=== PATIENT | female | born 1950 | race Caucasian/White ===

== ENCOUNTER → 2016-12-18 | Outpatient (CLI) | payer OTHER, BC ==
[~2016-12-18] MED LIST: ASPI81TA28 PO; ATOR-26 PO; FRS/40 PO; GABA-112 PO; GLIP10TA10 PO; LISI-725 PO; METF-383 PO; METO25TA3 PO; OXGN; POTA8CAP6 PO; RXC5 PO; SITA100T3 PO
[2016-12-18 14:30] LABS: BASO % 0.1 %; BASO ABS # 0.01 K/uL (0-0.2); COMPLETE YES; EOS % 1.4 %; HEMATOCRIT 44.2 % (37-47); IG% 0.3 %; LYMPH ABS # 1.35 K/uL (1.2-3.4); MEAN CELL VOLUME 93.8 fL (80-100); MEAN CORPUSCULAR HEMOGLOBIN 30.6 pg (25-34); MEAN CORPUSCULAR HGB CONC 32.6 g/dl (32-36); MEAN PLATELET VOLUME 10.6 fL (7.4-10.4); MONO % 6.9 %; NEUT % 74.3 %; PLATELET COUNT 255 K/uL (130-400); RED BLOOD COUNT 4.71 M/uL (4.2-5.4); WHITE BLOOD COUNT 7.92 K/uL (4.8-10.8)
[2016-12-18 14:33] LABS: ESTIMATED AVERAGE GLUCOSE 177 mg/dl; HA1C FLAG Normal (Normal)
[2016-12-18 14:36] LABS: ALT/SGPT 20 U/L (12-78); AST/SGOT 24 U/L (15-37); BLOOD UREA NITROGEN 15 mg/dl (7-18); BUN/CREATININE RATIO 17.6 (10-20); CALCIUM 9.5 mg/dl (8.5-10.1); CARBON DIOXIDE 39 mmol/L (21-32); CHLORIDE 95 mmol/L (98-107); CHOLESTEROL 143 mg/dl (0-200); CREATININE 0.83 mg/dl (0.60-1.20); GLUCOSE 142 mg/dl (70-99); POTASSIUM 4.5 mmol/L (3.5-5.1); SODIUM 138 mmol/L (136-145); TRIGLYCERIDES 189 mg/dl (0-150); VERY LOW DENSITY LIPOPROT CALC 38 mg/dl
[2016-12-18 14:38] LABS: ALB/GLOB RATIO 0.9 (0.9-2); ALKALINE PHOSPHATASE 120 U/L (45-117); HDL CHOLESTEROL 36 mg/dl; LDL CHOLESTEROL CALCULATED 69 mg/dl
== END | disposition home or self-care (01) ==
LOC: C.LABSPEC 14:16
PROVIDERS: ATTEND Family Medicine
DX: E11.9 Type 2 diabetes mellitus without complications (principal); I10 Essential (primary) hypertension; E78.2 Mixed hyperlipidemia

== ENCOUNTER → 2017-06-06 | Outpatient (CLI) | payer OTHER, BC ==
[2017-06-06 13:42] LABS: ESTIMATED AVERAGE GLUCOSE 177 mg/dl; HA1C FLAG Normal (Normal)
== END | disposition home or self-care (01) ==
LOC: C.LABSPEC 12:51
PROVIDERS: ATTEND Family Medicine
DX: E11.9 Type 2 diabetes mellitus without complications (principal)

== ENCOUNTER → 2017-07-10 | Outpatient (CLI) | payer OTHER, BC | END | disposition home or self-care (01) | LOC: C.LABSPEC 13:51 | PROVIDERS: ATTEND Family Medicine | DX: Z00.00 Encounter for general adult medical examination without abnormal findings (principal) ==

== ENCOUNTER 2017-07-20 07:24 | Inpatient (IN) | payer OTHER, BC ==
[2017-06-21 11:10] VITALS: BMI 38.0
--- NOTE | 2017-06-21 11:45 | PAT Medication Instructions ---
Service Date Jun 21, 2017. Current Home Medication List Aspirin (Aspirin Ec), 81 MG PO QAM Atorvastatin (Lipitor), 80 MG PO HS Furosemide (Lasix), 40 MG PO QAM Gabapentin (Neurontin), 100 MG PO TID Glipizide (Glipizide), 20 MG PO BID Home O2 Therapy (Oxygen), 2 LITERS NA PRN Lisinopril (Zestril), 20 MG PO BID Metformin Hcl (Glucophage), 1,700 MG PO BID Metoprolol Succ (Toprol Xl) (Toprol-Xl), 25 MG PO QAM Potassium Chloride (Klor-Con Ext Rel), 8 MEQ PO QAM Sitagliptin Phosphate (Januvia), 100 MG PO QAM Medication Instructions For Your Scheduled Surgery - Hold the following medications 24 hours prior to surgery: Lisinopril (Zestril), 20 MG PO BID - Hold the following medications 48 hours prior to surgery: Metformin Hcl (Glucophage), 1,700 MG PO BID - Hold the following medications the morning of surgery: Glipizide (Glipizide), 20 MG PO BID Furosemide (Lasix), 40 MG PO QAM Potassium Chloride (Klor-Con Ext Rel), 8 MEQ PO QAM Sitagliptin Phosphate (Januvia), 100 MG PO QAM - Take the following medications the morning of surgery with a sip of water: Metoprolol Succ (Toprol Xl) (Toprol-Xl), 25 MG PO QAM Home O2 Therapy (Oxygen), 2 LITERS NA PRN (if needed) Gabapentin (Neurontin), 100 MG PO TID Aspirin (Aspirin Ec), 81 MG PO QAM (okay to continue per surgeon) - Take the following medications as scheduled the night before surgery: Atorvastatin (Lipitor), 80 MG PO HS Glipizide (Glipizide), 20 MG PO BID Gabapentin (Neurontin), 100 MG PO TID Home O2 Therapy (Oxygen), 2 LITERS NA PRN If you have any questions please call us at [phone] or [phone] or [phone]
[2017-06-21 12:17] LABS: BASO % 0.2 %; BASO ABS # 0.02 K/uL (0-0.2); COMPLETE YES; EOS % 1.2 %; HEMATOCRIT 39.2 % (37-47); IG% 0.2 %; LYMPH % 15.9 %; LYMPH ABS # 1.32 K/uL (1.2-3.4); MEAN CELL VOLUME 92.9 fL (80-100); MEAN CORPUSCULAR HEMOGLOBIN 31.3 pg (25-34); MEAN CORPUSCULAR HGB CONC 33.7 g/dl (32-36); MONO % 8.2 %; NEUT % 74.3 %; PLATELET COUNT 215 K/uL (130-400); RED BLOOD COUNT 4.22 M/uL (4.2-5.4); WHITE BLOOD COUNT 8.28 K/uL (4.8-10.8)
--- NOTE | 2017-06-21 12:24 | DIAGNOSTIC IMAGING REPORT ---
CHEST PREADMISSION(PA/LAT) CLINICAL HISTORY: Preoperative chest COMPARISON STUDY: No previous studies for comparison. FINDINGS: The cardiac and mediastinal contours are normal. There is no evidence of focal pulmonary consolidation. There is no evidence of failure. No pleural effusions are visualized.[ IMPRESSION: No active disease in the chest. Electronically signed by: Vinod Ovalles M.D. 06/21/2017 12:22 PM Dictated Date/Time: 06/21/2017 12:19 PM
[2017-06-21 12:29] LABS: URINE APPEARANCE CLEAR (CLEAR); URINE BILIRUBIN NEG (NEG); URINE COLOR YELLOW; URINE EPITHELIAL CELL AUTO >30 /lpf (0-5); URINE NITRITE NEG (NEG); URINE SPECIFIC GRAVITY 1.023 (1.000-1.030); UROBILINOGEN NEG (NEG); ZZUR CULT IF INDIC CLEAN CATCH YES
[2017-06-21 12:33] LABS: MANUAL MICROSCOPIC REQUIRED? NO; REVIEW REQ? NO
[2017-06-21 12:54] LABS: BUN/CREATININE RATIO 23.3 (10-20); CALCIUM 9.4 mg/dl (8.5-10.1); CREATININE 0.83 mg/dl (0.60-1.20); POTASSIUM 5.5 mmol/L (3.5-5.1)
[~2017-07-20] VITALS: Ht 149.9 cm; Wt 90.8 kg
[~2017-07-20 07:24] MED LIST changes: +CEFAZOLIN 2000 MG/60 ML D5W IV SCH; +LACTATED RINGER'S 1000ML 1,000 ML IV SCH; -RXC5 PO
[2017-07-20 08:01] VITALS: BP 147/85; PULSE 88; TEMP 36.6; O2SAT 97; Ht 149.9 cm; Wt 90.8 kg
[2017-07-20] MEDS ORDERED: EpHEDrine SULFATE INJ 50 MG/ML AMP IV PRN (08:15)
[2017-07-20] MEDS ORDERED: PROMETHAZINE HCL INJ 12.5 MG in SODIUM CHLORIDE 0.9% 50ML 50 ML IV PRN ×2 (08:15→12:00)
[2017-07-20] MEDS ORDERED: HYDROmorphone INJ 1 MG/ML SYR IV PRN ×2 (08:15→16:17)
[2017-07-20] MEDS ORDERED: FENTANYL CITRATE INJ 50 MCG/1 ML 2 ML VIAL IV PRN (08:15)
[2017-07-20] MEDS ORDERED: ATROPINE SULFATE 0.1 MG/ML 5ML SYR IV PRN (08:15)
[2017-07-20] MEDS ORDERED: ONDANSETRON INJ 2 MG/ML 2 ML VIAL IV PRN ×2 (08:15→12:00)
--- NOTE | 2017-07-20 08:32 | History & Physical Bridge Note ---
H&P Re-Evaluation Bridge Note: I have examined the patient, reviewed the History & Physical and in the interval since the performance of the History & Physical I have noted the following changes of clinical significance: No changes noted
--- NOTE | 2017-07-20 08:33 | History and Physical ---
History & Physical Date Jul 20, 2017. Chief Complaint Back and leg pain History of Present Illness The patient is a 67 year old female with complaints of back and leg pain Additional History Hepatic Disease: No Endocrine Disorder: No Kidney Disease: No Hypertension: Yes Heart Disease: No Bleeding Tendencies: No Infectious Diseases: No Allergies Coded Allergies: Amlodipine (Verified Allergy, Unknown, LEG SWELLING, 07/20/17) Home Medications Scheduled Aspirin (Aspirin Ec), 81 MG PO QAM Atorvastatin (Lipitor), 80 MG PO HS Furosemide (Lasix), 40 MG PO QAM Gabapentin (Neurontin), 100 MG PO TID Glipizide (Glipizide), 20 MG PO BID Home O2 Therapy (Oxygen), 2 LITERS NA PRN Lisinopril (Zestril), 20 MG PO BID Metformin Hcl (Glucophage), 1,700 MG PO BID Metoprolol Succ (Toprol Xl) (Toprol-Xl), 25 MG PO QAM Potassium Chloride (Klor-Con Ext Rel), 8 MEQ PO QAM Sitagliptin Phosphate (Januvia), 100 MG PO QAM Physical Examination Skin: warm/dry, no rash Eyes: normal inspection, EOMI, sclerae normal ENT: normal ENT inspection, pharynx normal Head: normocephalic, atraumatic Neck: supple, no adenopathy, trachea midline Respiratory/Chest: lungs clear, normal breath sounds, no respiratory distress Cardiovascular: regular rate, rhythm, no edema, no murmur Abdomen / GI: normal bowel sounds, non tender Back: normal inspection Extremities: normal inspection, normal range of motion Neurologic/Psych: no motor/sensory deficits, alert, normal reflexes, oriented x 3 Diagnosis Lumbar spinal stenosis Plan of Treatment Lumbar decompression fusion L3 to S1
[2017-07-20] MEDS ORDERED: MIDAZOLAM HCL 1 MG/ML 2ML VIAL ONE (08:46)
[2017-07-20] MEDS ORDERED: FENTANYL CITRATE INJ 50 MCG/1 ML 2 ML VIAL ONE ×3 (08:46→10:35)
[2017-07-20] MEDS ORDERED: BACITRACIN 50000 UNIT VIAL ONE (09:15)
[2017-07-20] MEDS ORDERED: BUPIVACAINE/EPINEPHRINE 0.5% MPF 1:200,000 30 ML VIAL ONE (09:15)
[2017-07-20] MEDS ORDERED: HYDROmorphone INJ 2 MG/ML SYR/VIAL ONE ×3 (09:45→12:08)
[2017-07-20] MEDS ORDERED: ROCURONIUM BROMIDE 10 MG/ML 5 ML VIAL IV ONE ×2 (10:05→12:09)
[2017-07-20] MEDS ORDERED: EpHEDrine SULFATE 50MG/5ML SYR ONE ×2 (10:22→12:08)
[2017-07-20] MEDS ORDERED: PHENYLEPHRINE 100MCG/ML 5ML SYR ONE ×2 (10:22→12:08)
[2017-07-20] MEDS ORDERED: LIDOCAINE HCL 2% 2 ML VIAL (20MG/ML) ONE (10:28)
[2017-07-20] MEDS ORDERED: PROPOFOL IV EMULSION 10 MG/ML 20 ML VIAL IV ONE (10:28)
[2017-07-20] MEDS ORDERED: DEXAMETHASONE SOD INJ 4 MG/ML VIAL ONE (10:28)
[2017-07-20] MEDS ORDERED: ALBUT/IPRATROP 3MG/0.5MG NEB 3 ML VIAL ONE ×2 (11:38→13:04)
[2017-07-20] MEDS ORDERED: FLOSEAL HEMOSTATIC MATRIX 10ML TOP ONE (11:48)
[2017-07-20] MEDS ORDERED: SODIUM CHLORIDE 0.9% 1000ML 1,000 ML IV SCH ×2 (11:55)
[2017-07-20] MEDS ORDERED: BISACODYL 10 MG SUPP PR PRN (12:00)
[2017-07-20] MEDS ORDERED: LORAZEPAM INJ 0.5 MG in SYRINGE 0 ML IV PRN (12:00)
[2017-07-20] MEDS ORDERED: ACETAMINOPHEN 500 MG TAB PO PRN (12:00)
[2017-07-20] MEDS ORDERED: ALUMINUM/MAGNESIUM SUSP 30 ML UDC PO PRN (12:00)
[2017-07-20] MEDS ORDERED: SOD PHOSPHATE/SOD BIPHOSPHATE ENEMA 132 ML BTL PR PRN (12:00)
[2017-07-20] MEDS ORDERED: HYDROmorphone HCL 0.5MG/ML 50 ML CASSETTE IV PRN (12:00)
[2017-07-20] MEDS ORDERED: METOCLOPRAMIDE HCL INJ 5 MG/ML 2 ML VIAL IV PRN (12:00)
[2017-07-20] MEDS ORDERED: ACETAMINOPHEN IV 100 ML IV PRN (12:00)
[2017-07-20] MEDS ORDERED: NALOXONE HCL 0.4 MG/1 ML VIAL/CARP IV PRN ×2 (12:00)
[2017-07-20] MEDS ORDERED: DO NOT ADMINISTER FLU VACCINE PRN ×3 (12:00)
[2017-07-20] MEDS ORDERED: hydrOXYzine HCL 25 MG TAB PO PRN (12:00)
[2017-07-20] MEDS ORDERED: FAMOTIDINE 20 MG TAB PO PRN (12:00)
[2017-07-20] MEDS ORDERED: DO NOT ADMINISTER PNEUMOCOCCAL VACCINE PRN ×2 (12:00)
[2017-07-20] MEDS ORDERED: MAGNESIUM HYDROXIDE SUSP 30 ML UDC PO PRN (12:00)
[2017-07-20] MEDS ORDERED: LORAZEPAM 0.5 MG TAB PO PRN (12:00)
--- NOTE | 2017-07-20 12:02 | [facility] Operative Report ---
Operative Report Operative Date Jul 20, 2017. Pre-Operative Diagnosis Lumbar Spinal Stenosis. Post-Operative Diagnosis Lumbar Spinal Stenosis. Procedure(s) Performed #1 lumbar decompression medial facetectomies foraminotomies L2 3 L3 4 L4 5 L5-S1. #2 posterior spinal fusion L3 4 L4 5 L5-S1. #3 placement posterior spinal segmental instrumentation L3 4 L4 5 L5-S1. #4 interbody fusion L5-S1. #5 placement peek cage 12 x 22 mm L5-S1. #6 placement of locally harvested morcellized autograft in the posterior lateral gutters. #7 placement infuse collagen sponge commode Master graft in the posterior lateral gutters and ostial amp in the interbody space. Surgeon Diet Technician Registered Surgeon(s) Jacek Barroso PA-C Estimated Blood Loss 400ML Findings Severe spinal stenosis Specimens None per surgeon. Description of Procedure Patient was met with preoperatively case discussed all questions are dressed. After informed consent she was taken to the operative suite and underwent intubation placed in the prone position the Doug table top Quinton frame. All bony prominences were well-padded eyes inspected to ensure no external pressure. Lumbar spine prepped and draped nostril fashion. Sharp dissection with the assistance of Bovie cautery was performed onto an exposing the lamina and transverse processes of L3 L4-L5 and sacral alar bilaterally. From a caudal to cephalad fashion complete laminectomy of L5 L4 and L3 as well as partial laminectomy of L2 was performed addressing severe lateral recess and foraminal stenosis. After this complete pedicle screws are placed in L3 L4-L5 and the S1 levels bilaterally. Purposes farhana was placed. Through a transforaminal approach on the left complete discectomy of L5-S1 was performed and plate created to subcortical bleeding bone and a 12 x 22 mm peek cage filled with ostial amp tapped in position. The rods were then compressed locked and final position bilaterally. A cross-link locked in position. The transverse processes of L3 L4-L5 and sacral alar burred to subcortical bleeding bone. Infuse calm sponge mask graft locally harvested morcellized autograft was placed and posterior gutters. 15 round ELLIOTT drain inserted. Incision was then closed with 1 Vicryl fascia 2-0 Vicryl subcutaneous cutaneously 4 Monocryl for final skin closure Steri-Strip sterile dressing placed. Patient we can take PACU stable condition. Please note Nelson neal was present at the entire procedure involved in patient positioning complex portions of the surgery and final skin closure. I attest to the content of the Intraoperative Record and any orders documented therein. Any exceptions are noted below.
[2017-07-20] MEDS ORDERED: NEOSTIGMINE METHYLSULFATE 1 MG/ML 10ML VIAL ONE (12:08)
[2017-07-20] MEDS ORDERED: ONDANSETRON INJ 2 MG/ML 2 ML VIAL ONE (12:08)
[2017-07-20] MEDS ORDERED: KETOROLAC TROMETHAMINE 30 MG/ML VIAL ONE (12:08)
[2017-07-20] MEDS ORDERED: GLYCOPYRROLATE INJ 0.2 MG/ML VIAL ONE (12:08)
[2017-07-20] MEDS ORDERED: PHARMACY GLYCEMIC MGMT CONSULT PRN (12:09)
--- NOTE | 2017-07-20 12:26 | DIAGNOSTIC IMAGING REPORT ---
LUMBAR SPINE, INTRAOPERATIVE FLUOROSCOPY HISTORY: L3-S1 posterior decompression and fusion. FLUOROSCOPY TIME: 24 seconds. FINDINGS: Intraoperative fluoroscopy was provided for the lumbar spine. 2 fluoroscopic spot images were obtained. Posterior decompression and fusion from L3 through S1 with pedicle screws and rods. The hardware appears intact. IMPRESSION: Fluoroscopy provided for a L3-S1 posterior decompression and fusion.. Electronically signed by: Tae Augustine M.D. 07/20/2017 12:25 PM Dictated Date/Time: 07/20/2017 12:24 PM
[2017-07-20 13:00] VITALS: PULSE 96; O2SAT 93; O2SAT 95
[2017-07-20] MEDS ORDERED: ALBUT/IPRATROP 3MG/0.5MG NEB 3 ML VIAL INH STA (13:04)
[2017-07-20] MEDS ORDERED: ESMOLOL HCL 10 MG/ML 10 ML VIAL ONE (13:42)
[2017-07-20] MEDS ORDERED: METOPROLOL TARTRATE 1 MG/ML VIAL ONE (13:42)
[2017-07-20] MEDS ORDERED: NURSING VERBAL MED ORDER ONE (14:00)
--- NOTE | 2017-07-20 14:53 | DIAGNOSTIC IMAGING REPORT ---
CHEST ONE VIEW PORTABLE CLINICAL HISTORY: 67 years-old Female presenting with Post-op. TECHNIQUE: Portable upright AP view of the chest was obtained. COMPARISON: 06/21/2017. FINDINGS: Atherosclerosis of the aortic arch. Cardiac silhouette enlarged as on prior exam. Interval development of hazy bibasilar opacities. No large effusion or pneumothorax. Degenerative changes of the thoracic spine. Upper abdomen normal. IMPRESSION: 1. Cardiomegaly with hazy bibasilar opacities most consistent with pulmonary edema. Electronically signed by: Costa Angela M.D. 07/20/2017 2:52 PM Dictated Date/Time: 07/20/2017 2:51 PM
[2017-07-20] MEDS ORDERED: GLUCAGON FOR INJ 1 MG VIAL SQ PRN (15:00)
[2017-07-20] MEDS ORDERED: INSULIN HUMAN REGULAR IV BOLUS 2 UNIT in SYRINGE 0 ML IV SCH (15:00)
[2017-07-20] MEDS ORDERED: GLUCOSE 40% GEL 15 GM TUBE PO PRN (15:00)
[2017-07-20] MEDS ORDERED: GLUCOSE 10 TABS/TUBE PO PRN (15:00)
[2017-07-20] MEDS ORDERED: DEXTROSE 50% 50 ML SYR IV PRN (15:00)
--- NOTE | 2017-07-20 15:05 | Pharmacy Progress Note ---
Glycemic Control Intl Consult Date of Service Jul 20, 2017. Scope Glycemic Pharmacist consulted by Dr Gutierres on 07/20/17 for glycemic control and to write orders per [facility] inpatient glycemic control protocol Objective Weight (Kilograms): 87.5 Accuchecks BSG (last 24hrs): Test 07/20/17 07:54 07/20/17 14:45 Bedside Glucose 225 mg/dl (70-90) 298 mg/dl (70-90) Recent Pertinent Medications Outpatient Anti-diabetic Regimen: * glipizide 20 mg PO BID + metformin 1000 mg PO BID + Januvia 100 mg PO daily * A1c = 7.8 % 07/20/17 Risk Factors for Insulin Resistance: * Steroids: dexamethasone 12 mg IV intraoperatively then 6 mg IV q8 hours * Recent Surgery: POD 0 for lumbar surgery * Diet: type 2 diabetic diet Assessment & Plan ASSESSMENT: * ADA & AACE recommend a goal blood sugar range 140-180 mg/dl for the majority of critically ill & non-critically ill patients. However, more stringent targets may be selected in individual cases. Will utilize more stringent goal of 100-150 mg/dl based on patient age & comorbidities. Additionally, tighter glycemic control is warranted to facilitate wound healing. * Ms Lucas is a type 2 diabetic with reasonable control on 3 oral medications. Her blood sugar prior to surgery is 224 mg/dL. The patient received steroids during surgery and after surgery. Unfortunately, her blood sugar in PACU was 298 mg/dL. Dr Nenita rdz'ed an insulin infusion and this was started in PACU. * In addition to the insulin infusion, weight based stress of 3 24 hour dose of Lantus was given then weight based stress of 2 started on POD 1. In previous patients this has proven effective. A fixed carbohydrate ratio was established based on weight based stress of 3 dosing. PLAN FOR INPATIENT GLYCEMIC CONTROL: * Starting IV insulin infusion per moderate (moderate/severe) stress protocol * Goal Range 100 - 150 mg/dl * In the critical care setting, continuous IV insulin infusion has been shown to be the best method for achieving glycemic targets. * Maintain fixed carbohydrate ratio of 1 unit per 6 grams of carbohydrates consumed. * Holding outpatient oral diabetes medications * Basal insulin with LANTUS 45 units SQ x 1 then 15 SQ BID * Please note that the plan above was derived based on current level of insulin resistance and hospital stress. These recommendations are appropriate for inpatient admission only. Plan of care upon discharge will need to be reassessed to avoid potential outpatient hypo/hyperglycemia. Thank you.
[2017-07-20] MEDS: INSULIN REGULAR 250 UNITS in SODIUM CHLORIDE 0.9% 250ML 250 ML IV SCH (15:06)
--- NOTE | 2017-07-20 15:13 | Anesthesiology Progress Note ---
Anesthesia Post Op Note Date & Time Jul 20, 2017 at 15:10 Vital Signs Pain Intensity: 0 Vital Signs Past 12 Hours Date Time Temp Pulse Resp B/P (MAP) Pulse Ox O2 Delivery O2 Flow Rate FiO2 07/20/17 14:50 82 16 131/80 90 BiPAP 70 07/20/17 14:40 77 14 114/90 88 BiPAP 60 07/20/17 14:30 85 15 122/71 90 BiPAP 60 07/20/17 14:20 76 13 129/77 89 BiPAP 60 07/20/17 14:10 77 16 155/77 90 BiPAP 60 07/20/17 14:00 87 12 125/66 88 BiPAP 50 07/20/17 13:50 89 14 137/69 92 BiPAP 50 07/20/17 13:40 92 15 116/89 91 BiPAP 50 07/20/17 13:30 90 15 139/78 95 BiPAP 50 07/20/17 13:20 92 14 140/77 91 BiPAP 50 07/20/17 13:10 94 18 151/79 96 BiPAP 50 07/20/17 13:01 36.0 95 16 166/84 92 BiPAP 50 07/20/17 13:00 96 24 95 BiPAP/CPAP 07/20/17 13:00 96 93 50 07/20/17 08:01 36.6 88 20 147/85 97 Room Air Notes Mental Status: alert / awake / arousable, participated in evaluation Pt Amnestic to Procedure: Yes Nausea / Vomiting: adequately controlled Pain: adequately controlled Airway Patency, RR, SpO2: stable & adequate BP & HR: stable & adequate Hydration State: stable & adequate Anesthetic Complications: no major complications apparent Pt requiring bipap in PACU for low O2 Sats. Pt with h/o COPD on 2L NC and current smoker. Duoneb also given in PACU with minimal improvement. Doing well with improved sats on bipap with O2 ranging from 90-93%. CXR ordered showing bibasilar opacities consistent with pulmonary edema. Discussed with Dr. Gutierres. Pt will be admitted to telemetry unit, on bipap overnight with medicine consult. Other VS stable.
[2017-07-20] MEDS ORDERED: FUROSEMIDE 40 MG/4 ML VIAL IV STA (16:15)
[2017-07-20 16:30] LABS: BASO % 0.1 %; BASO ABS # 0.01 K/uL (0-0.2); HEMATOCRIT 36.9 % (37-47); IG% 0.6 %; LYMPH % 2.9 %; LYMPH ABS # 0.42 K/uL (1.2-3.4); MEAN CELL VOLUME 94.4 fL (80-100); MEAN CORPUSCULAR HEMOGLOBIN 30.2 pg (25-34); MEAN PLATELET VOLUME 9.9 fL (7.4-10.4); MONO % 3.8 %; NEUT % 92.6 %; PLATELET COUNT 214 K/uL (130-400); RED BLOOD COUNT 3.91 M/uL (4.2-5.4)
[2017-07-20 16:38] LABS: COMPLETE YES
--- NOTE | 2017-07-20 16:39 | Medical Consult ---
Consultation Date of Consultation: Jul 20, 2017. Attending Physician: Yunior Gutierres D.O. Reason for Consultation: Medical management History of Present Illness The patient is a 67-year-old female who underwent orthopedic spine surgery by Dr. Gutierres earlier today, and was found in recovery to be hypoxic requiring BiPAP at settings of 14/7/70% to keep pulse ox in the mid 90s. Chest x-ray performed at that time showed bilateral lower lobe pulmonary edema, medical consult was called in, the patient was admitted under Dr. Gutierres service to the PCU. Family History Noncontributory Social History Smoking Status: Current Every Day Smoker Smokeless Tobacco Use: No Alcohol Use: none Drug Use: none Allergies Coded Allergies: Amlodipine (Verified Allergy, Unknown, LEG SWELLING, 07/20/17) Current Inpatient Medications Current Inpatient Medications Medications (Trade) Dose Ordered Sig/Mayelin Route Start Time Stop Time Status Last Admin Dose Admin Cefazolin Sodium 60 ml @ 100 mls/hr PREOP IV 07/20/17 06:00 07/20/17 18:00 07/20/17 09:26 100 MLS/HR Lactated Ringer's 1,000 ml @ 15 mls/hr Q24H IV 07/20/17 06:00 07/21/17 05:59 Dexamethasone Sodium Phosphate 6 mg/Syringe 1.5 ml @ 1 mls/min Q8H IV 07/20/17 18:00 07/21/17 10:02 Promethazine HCl 12.5 mg/Sodium Chloride 50.5 ml @ 202 mls/hr Q6H PRN IV 07/20/17 12:00 08/19/17 11:59 Ondansetron HCl (Zofran Inj) 4 mg Q6H PRN IV 07/20/17 12:00 08/19/17 11:59 Metoclopramide HCl (Reglan Inj) 10 mg Q6H PRN IV 07/20/17 12:00 08/19/17 11:59 Lorazepam (Ativan Tab) 0.5 mg Q8H PRN PO 07/20/17 12:00 08/19/17 11:59 Lorazepam 0.5 mg/ Syringe 0.25 ml @ 1 mls/min Q8H PRN IV 07/20/17 12:00 08/19/17 11:59 Pneumococcal Polysaccharide Vaccine 1 ea PRN PRN N/A 07/20/17 12:00 08/19/17 11:59 Influenza Virus Vacc Triv Types A&B 1 ea PRN PRN N/A 07/20/17 12:00 08/19/17 11:59 Polyethylene (Miralax Powder Packet) 17 gm Q6 PO 07/22/17 06:00 08/21/17 05:59 Bisacodyl (Dulcolax Supp) 10 mg DAILY PRN [place] 07/20/17 12:00 08/19/17 11:59 Magnesium Hydroxide (Milk Of Magnesia Susp) 30 ml DAILY PRN PO 07/20/17 12:00 08/19/17 11:59 Hydromorphone HCl (Dilaudid Inj) 0.5-1mg prn moder... Q3H PRN IV 07/20/17 16:17 08/03/17 16:16 Oxycodone HCl (Roxicodone Immediate Rel Tab) 5-10mg prn moderate to sev... Q4H PRN PO 07/21/17 06:00 08/04/17 05:59 Cefazolin Sodium 2000 mg/Dextrose 60 ml @ 100 mls/hr Q8H IV 07/20/17 18:00 07/21/17 02:35 Acetaminophen (Tylenol Tab) 1,000 mg Q8H PRN PO 07/20/17 12:00 08/19/17 11:59 Acetaminophen 100 ml @ 400 mls/hr Q8H PRN IV 07/20/17 12:00 08/19/17 11:59 Naloxone HCl (Narcan Inj) 0.1 mg Q5M PRN IV 07/20/17 12:00 08/19/17 11:59 Senna/Docusate Sodium (Senokot S Tab) 2 tab HS PO 07/20/17 21:00 08/19/17 20:59 Sodium Biphosphate/ Sodium Phosphate (Fleet Enema) 132 ml ONE PRN [place] 07/20/17 12:00 08/19/17 11:59 Hydroxyzine HCl (Vistaril Tab) 25 mg Q8H PRN PO 07/20/17 12:00 08/19/17 11:59 Al Hydroxide/Mg Hydroxide (Maalox Susp) 30 ml Q6H PRN PO 07/20/17 12:00 08/19/17 11:59 Famotidine (Pepcid Tab) 20 mg Q12 PRN PO 07/20/17 12:00 08/19/17 11:59 Diphenhydramine HCl (Benadryl Cap) 25 mg Q6H PRN PO 07/20/17 12:00 08/19/17 11:59 Aspirin (Ecotrin Tab) 81 mg QAM PO 07/21/17 09:00 08/20/17 08:59 Atorvastatin Calcium (Lipitor Tab) 80 mg HS PO 07/20/17 21:00 08/19/17 20:59 Gabapentin (Neurontin Cap) 100 mg TID PO 07/20/17 21:00 08/19/17 20:59 Lisinopril (Zestril Tab) 20 mg BID PO 07/20/17 21:00 08/19/17 20:59 Metoprolol Succinate (Toprol Xl Tab) 25 mg QAM PO 07/21/17 09:00 08/20/17 08:59 Miscellaneous Information (Consult Glycemic Management Pharmacy) 1 ea UD PRN N/A 07/20/17 12:09 08/19/17 12:08 Insulin Human Regular 250 units/ Sodium Chloride 252.5 ml @ 0 mls/hr DAILY@1130 IV 07/20/17 15:00 08/19/17 14:59 07/20/17 15:06 2.2 MLS/HR Insulin Aspart (novoLOG ASPART) SLIDING SCALE PCHS SC 07/20/17 17:30 08/19/17 18:59 Glucose (Glucose 40% Gel) UD PRN PO 07/20/17 15:00 08/19/17 14:59 Glucose (Glucose Chew Tab) 1 tabs UD PRN PO 07/20/17 15:00 08/19/17 14:59 Dextrose (Dextrose 50% 50ML Syringe) 50 ml UD PRN IV 07/20/17 15:00 08/19/17 14:59 Glucagon (Glucagon Inj) 1 mg UD PRN SQ 07/20/17 15:00 08/19/17 14:59 Insulin Glargine (Lantus Solostar Pen) 15 units BID SC 07/21/17 09:00 08/20/17 08:59 Furosemide 40 mg/ Syringe 4 ml @ 4 mls/min BID IV 07/20/17 23:00 08/19/17 22:59 Insulin Glargine (Lantus Solostar Pen) 45 units TODAY@1700 SC 07/20/17 17:00 07/20/17 17:01 Review of Systems The patient denies chest pain, palpitations, cough, lower extremity swelling, vision change, hearing change, sore throat, fevers, chills, sweats, nausea, vomiting, diarrhea or constipation , abdominal pain, pelvic pain, blood in urine or stool, dysuria, urinary frequency or urgency, lightheadedness , dizziness, headache, rash, abnormal bruising or bleeding. The review of systems is otherwise negative other than for that already noted above, and at least 10 systems have been reviewed. Physical Exam Date Time Temp Pulse Resp B/P (MAP) Pulse Ox O2 Delivery O2 Flow Rate FiO2 07/20/17 15:30 82 15 126/70 92 BiPAP 70 07/20/17 15:20 82 16 127/75 92 BiPAP 70 07/20/17 15:10 36.1 83 18 136/78 92 BiPAP 70 07/20/17 15:00 72 13 130/71 93 BiPAP 70 07/20/17 14:50 82 16 131/80 90 BiPAP 70 07/20/17 14:40 77 14 114/90 88 BiPAP 60 07/20/17 14:30 85 15 122/71 90 BiPAP 60 07/20/17 14:20 76 13 129/77 89 BiPAP 60 07/20/17 14:10 77 16 155/77 90 BiPAP 60 07/20/17 14:00 87 12 125/66 88 BiPAP 50 07/20/17 13:50 89 14 137/69 92 BiPAP 50 07/20/17 13:40 92 15 116/89 91 BiPAP 50 07/20/17 13:30 90 15 139/78 95 BiPAP 50 07/20/17 13:20 92 14 140/77 91 BiPAP 50 07/20/17 13:10 94 18 151/79 96 BiPAP 50 07/20/17 13:01 36.0 95 16 166/84 92 BiPAP 50 07/20/17 13:00 96 24 95 BiPAP/CPAP 07/20/17 13:00 96 93 50 07/20/17 08:01 36.6 88 20 147/85 97 Room Air The patient is awake, well-developed and adequately nourished, alert and oriented 3, normocephalic and atraumatic, BiPAP mask in place, lying in bed and in no acute distress. HEENT--PERRL, EOMI, mucous membranes and oropharynx normal. Neck--supple, no JVD or bruits, thyroid normal, trachea midline, no adenopathy. Heart--normal S1 and S2, no extra beats, no murmurs, rubs or gallops. Lungs--crackles at the bases bilaterally, mild respiratory distress, no accessory muscle use. Abdomen--normal bowel sounds and soft, nontender and nondistended, no hernias or masses, no organomegaly. Extremities--no cyanosis, clubbing or edema. There are good distal pulses b/l. Dermatologic--normal skin turgor, normal color, warm and dry, no abnormal lymph nodes, no rash. Neurologic--cranial nerves II through XII grossly intact. Rheumatologic--limited exam postoperatively Psychiatric--normal affect. Laboratory Results Last 24 Hours Test 07/20/17 07:54 07/20/17 14:45 07/20/17 16:02 07/20/17 16:16 Bedside Glucose 225 mg/dl 298 mg/dl Creatine Kinase MB Ratio Assessment & Plan Acute respiratory failure with hypoxia secondary to fluid overload-- The patient will be admitted to telemetry for serial cardiac enzymes, cardiac rhythm monitoring and a 2-D echocardiogram with Dopplers. Discontinue IV fluids and Hep-Lock IV. Lasix 40 mg IV now, then 40 mg IV twice a day. Stat CBC with differential, chemistry profile, magnesium level, and cardiac enzymes. 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 Keep Conway catheter in until discontinued by medicine service. Taper from BiPAP 14/7 with FiO2 70% to nasal cannula as symptoms improve. Serial laboratories and chest x-rays in a.m. Hypertension-- Continue metoprolol, aspirin and lisinopril. Hyperlipidemia -- Continue atorvastatin. COPD-- Continue usual regimen. Duonebs every 2 hours when necessary Status post orthopedic spine surgery-- Treatment per Dr. Gutierres. Diabetes mellitus-- Glycemic . Management has been consulted Thank you for this consult, [facility] Hospitalist Service will follow along during hospital stay.
[2017-07-20 16:56] LABS: ALKALINE PHOSPHATASE 109 U/L (45-117); ALT/SGPT 22 U/L (12-78); AST/SGOT 30 U/L (15-37); BLOOD UREA NITROGEN 18 mg/dl (7-18); BUN/CREATININE RATIO 17.8 (10-20); CALCIUM 8.3 mg/dl (8.5-10.1); CARBON DIOXIDE 30 mmol/L (21-32); CHLORIDE 102 mmol/L (98-107); CKMB/CK RATIO 3.5 (0-3.0); GLUCOSE 265 mg/dl (70-99); MAGNESIUM 1.8 mg/dl (1.8-2.4); POTASSIUM 4.7 mmol/L (3.5-5.1); SODIUM 139 mmol/L (136-145)
[2017-07-20] MEDS ORDERED: INSULIN GLARGINE SOLOSTAR 100 UNITS/ML 3 ML PEN SC SCH ×2 (17:00)
[2017-07-20] MEDS: INSULIN ASPART 100 UNITS/ML 3 ML PEN SC SCH ×2 (17:30→21:00)
[2017-07-20] MEDS: CEFAZOLIN IV 2,000 MG in DEXTROSE 5% 50ML 50 ML IV SCH (17:40)
[2017-07-20] MEDS: DEXAMETHASONE INJ 6 MG in SYRINGE 0 ML IV SCH (17:40)
[2017-07-20 19:43] VITALS: BP 102/64; PULSE 75; TEMP 36.3; O2SAT 99
[2017-07-20 20:00] VITALS: O2SAT 97
[2017-07-20] MEDS ORDERED: NON-FORMULARY MEDICATION (Glipizide 20 MG) PO SCH (21:00)
[2017-07-20] MEDS: ATORVASTATIN 40 MG TAB PO SCH (21:15)
[2017-07-20] MEDS: GABAPENTIN 100 MG CAP PO SCH (21:16)
[2017-07-20] MEDS: LISINOPRIL 20 MG TAB PO SCH (21:16)
[2017-07-20] MEDS: DOCUSATE SODIUM/SENNA 50/8.6MG TAB PO SCH (21:17)
[2017-07-20 22:05] VITALS: PULSE 96; O2SAT 97
[2017-07-20 23:29] VITALS: BP 104/68; PULSE 81; TEMP 36.7; O2SAT 98
[2017-07-20] MEDS: FUROSEMIDE INJ 40 MG in SYRINGE 0 ML IV SCH (23:30)
[2017-07-21] VITALS (12 sets, daily range): BP systolic 107–121; BP diastolic 61–75; PULSE 69–90; TEMP 36.4–36.9; O2SAT 92–97
[2017-07-21 00:40] LABS: CKMB/CK RATIO 3.6 (0-3.0)
[2017-07-21] MEDS: DEXAMETHASONE INJ 6 MG in SYRINGE 0 ML IV SCH ×2 (02:04→09:40)
[2017-07-21] MEDS: CEFAZOLIN IV 2,000 MG in DEXTROSE 5% 50ML 50 ML IV SCH (02:04)
[2017-07-21] MEDS ORDERED: OXYCODONE HCL IR 5 MG TAB (IMMEDIATE RELEASE) PO PRN (06:00)
[2017-07-21] MEDS ORDERED: DC PCA ONE (06:00)
[2017-07-21] MEDS: GABAPENTIN 100 MG CAP PO SCH ×3 (07:48→19:55)
[2017-07-21] MEDS: ASPIRIN 81 MG ECTAB PO SCH (07:48)
[2017-07-21] MEDS: FUROSEMIDE INJ 40 MG in SYRINGE 0 ML IV SCH ×2 (07:48→19:56)
[2017-07-21] MEDS: LISINOPRIL 20 MG TAB PO SCH ×2 (07:49→19:55)
[2017-07-21] MEDS: METOPROLOL SUCC 25MG EXT REL TAB PO SCH (07:49)
[2017-07-21 08:01] LABS: COMPLETE YES; HEMATOCRIT 30.4 % (37-47); IG% 0.3 %; LYMPH % 4.9 %; LYMPH ABS # 0.71 K/uL (1.2-3.4); MEAN CELL VOLUME 94.1 fL (80-100); MEAN CORPUSCULAR HGB CONC 31.9 g/dl (32-36); MEAN PLATELET VOLUME 9.3 fL (7.4-10.4); MONO % 3.6 %; NEUT % 91.2 %; PLATELET COUNT 201 K/uL (130-400); RED BLOOD COUNT 3.23 M/uL (4.2-5.4)
[2017-07-21 08:29] LABS: BLOOD UREA NITROGEN 26 mg/dl (7-18); BUN/CREATININE RATIO 25.5 (10-20); CALCIUM 8.8 mg/dl (8.5-10.1); CARBON DIOXIDE 31 mmol/L (21-32); CHLORIDE 101 mmol/L (98-107); GLUCOSE 120 mg/dl (70-99); POTASSIUM 4.6 mmol/L (3.5-5.1); SODIUM 139 mmol/L (136-145)
[2017-07-21] MEDS: INSULIN ASPART 100 UNITS/ML 3 ML PEN SC SCH ×4 (08:33→19:56)
[2017-07-21 08:36] LABS: CKMB/CK RATIO 2.8 (0-3.0)
[2017-07-21] MEDS ORDERED: INSULIN GLARGINE SOLOSTAR 100 UNITS/ML 3 ML PEN SC SCH ×2 (09:00)
[2017-07-21] MEDS ORDERED: SITAGLIPTIN 100 MG TAB PO SCH (09:00)
[2017-07-21] MEDS ORDERED: FUROSEMIDE 40 MG TAB PO SCH (09:00)
--- NOTE | 2017-07-21 09:26 | Progress Note ---
Progress Note Date of Service Jul 21, 2017. Progress Note Patient's back pain is well-controlled. She denies any leg pain. Denies any shortness of breath or discomfort at this time. On exam she sitting up in bed alert and oriented very comfortable. She demonstrates excellent strength testing. Assessment status post multilevel lumbar decompression fusion replant this time we will transfer to the orthopedic floor when cleared by medicine. Which time we'll initiate physical therapy for inhalation and transfers.
--- NOTE | 2017-07-21 10:08 | DIAGNOSTIC IMAGING REPORT ---
CHEST ONE VIEW PORTABLE CLINICAL HISTORY: 67 years-old Female presenting with f/u pulm edema. TECHNIQUE: Portable upright AP view of the chest was obtained. COMPARISON: 07/20/2017. FINDINGS: Atherosclerosis of aortic arch. Cardiac silhouette remains mildly enlarged. Lungs and pleural spaces clear. Degenerative changes of the thoracic spine. Upper abdomen normal. IMPRESSION: 1. Interval resolution of mild pulmonary edema. 2. Mild cardiomegaly. Electronically signed by: Costa Angela M.D. 07/21/2017 10:06 AM Dictated Date/Time: 07/21/2017 10:05 AM
[2017-07-21] MEDS ORDERED: ALBUT/IPRATROP 3MG/0.5MG NEB 3 ML VIAL INH PRN (10:15)
--- NOTE | 2017-07-21 10:31 | Pharmacy Progress Note ---
Glycemic Control Progress Note Date of Service Jul 21, 2017. Scope Glycemic Pharmacist consulted for glycemic control to write orders per [facility] inpatient glycemic control protocol. Objective Accuchecks BSG (last 24hrs): Test 07/20/17 14:45 07/20/17 16:16 07/20/17 16:18 07/20/17 17:36 Bedside Glucose 298 mg/dl (70-90) 283 mg/dl (70-90) 258 mg/dl (70-90) Random Glucose 265 mg/dl (70-99) Test 07/20/17 18:35 07/20/17 20:31 07/20/17 21:32 07/20/17 22:51 Bedside Glucose 270 mg/dl (70-90) 224 mg/dl (70-90) 190 mg/dl (70-90) 191 mg/dl (70-90) Test 07/20/17 23:33 07/21/17 00:27 07/21/17 01:32 07/21/17 02:33 Bedside Glucose 186 mg/dl (70-90) 168 mg/dl (70-90) 157 mg/dl (70-90) 157 mg/dl (70-90) Test 07/21/17 03:49 07/21/17 05:36 07/21/17 06:52 07/21/17 07:34 Bedside Glucose 159 mg/dl (70-90) 137 mg/dl (70-90) 132 mg/dl (70-90) 123 mg/dl (70-90) Test 07/21/17 07:48 07/21/17 08:33 Random Glucose 120 mg/dl (70-99) Bedside Glucose 159 mg/dl (70-90) HbA1c: 7.8% 07/20/17 Recent Pertinent Medications The patient is currently receiving: * Basal insulin: Lantus BID: 15 units if BSG less than 140, 22 units if BSG 140 or greater * Correctional Insulin: IV insulin infusion, goal range 100 - 150 mg/dL * Prandial insulin: Per carb ratio of 1 unit per 6 grams CHO consumed * Oral Agents: None currently Outpatient Anti-Diabetic Meds Glipizide 20mg PO BID Metformin 1700mg BID Sitagliptin 100mg Q AM Assessment & Plan ASSESSMENT: 07/21/17 * Patient presented yesterday for lumbar spinal surgery. * She had been hyperglycemic prior to the procedure, and glycemic control worsened post-procedure. IV insulin drip was initiated to quickly address hyperglycemia in the setting of recent surgery w/ continued use of high dose IV steroids. * Lantus was continued w/ the insulin drip to allow for easier transition off the drip when that time comes. * BSGs are well controlled this AM. Last dose of dexamethasone IV given at ~ 1000. Would expect increased insulin resistance to continue for next 36-48 hours. Would like to continue the insulin infusion at this time given relatively high infusion rates (5-7 units/hour) despite Lantus administration. I suspect she will quickly become hyperglycemic w/ a SQ regimen at this time. May consider transition off the drip closer to bedtime this evening during a period of fasting. Will escalate basal insulin doses as well starting w/ evening meal to assist w/ this transition. PLAN FOR INPATIENT GLYCEMIC CONTROL: * Continuing IV insulin drip at this time w/ same goal range: 100-150 mg/dL; change carb ratio used w/ drip to 1 unit per 5 grams CHO's consumed * Give additional 10 units of Lantus w/ lunch today, then increase to 25 units BID starting w/ dinner * Discontinue the insulin drip at 2200 tonight * After the insulin drip is d/c'd: * Novolog SQ ACHS and at 0000 + 0400 * Correction factor of 12 mg/dl/unit * Carb ratio of 1 unit per 5 grams CHO consumed * Goal range Low 110 mg/dL - High 140 mg/dL RECOMMENDATIONS FOR DISCHARGE: * * Please note that the plan above was derived based on current level of insulin resistance and hospital stress. These recommendations are appropriate for inpatient admission only. Plan of care upon discharge will need to be reassessed to avoid potential outpatient hypo/hyperglycemia. Thank you.
--- NOTE | 2017-07-21 10:33 | Hospitalist Progress Note ---
Hospitalist Progress Note Date of Service Jul 21, 2017. Subjective Pt evaluation today including: conversation w/ patient Voiding: bob catheter in place Weaned off BiPAP onto 6 LNC this AM, denies SOB, no CP. Says she has never been told she has CHF. SHe was placed on amlodipine in exchange for lisinopril 2 yrs ago by PCP and had LE edema. At that point she was placed back on ACEI, dc amlodipine and started on lasix and KCl. She had PFTs but no ECHO. Has COPD but not on inhalers at home. has chronic post-nasal gtt. She is tolerating po today, feeling better Abdomen: + constipation All Other Systems: Reviewed and Negative Objective Vital Signs Date Time Temp Pulse Resp B/P (MAP) Pulse Ox O2 Delivery O2 Flow Rate FiO2 07/21/17 08:02 36.6 84 20 119/64 (82) 92 Nasal Cannula 6.0 07/21/17 08:00 92 Nasal Cannula 6.0 07/21/17 07:24 81 97 60 07/21/17 04:00 97 BiPAP 14.0 60 07/21/17 03:14 36.4 81 20 107/67 (80) 97 BiPAP 07/21/17 00:00 97 BiPAP 14.0 60 07/20/17 23:29 36.7 81 20 104/68 (80) 98 BiPAP 07/20/17 22:05 96 97 70 07/20/17 20:00 97 BiPAP 14.0 60 07/20/17 19:43 36.3 75 16 102/64 (77) 99 BiPAP 07/20/17 15:30 82 15 126/70 92 BiPAP 70 07/20/17 15:20 82 16 127/75 92 BiPAP 70 07/20/17 15:10 36.1 83 18 136/78 92 BiPAP 70 07/20/17 15:00 72 13 130/71 93 BiPAP 70 07/20/17 14:50 82 16 131/80 90 BiPAP 70 07/20/17 14:40 77 14 114/90 88 BiPAP 60 07/20/17 14:30 85 15 122/71 90 BiPAP 60 07/20/17 14:20 76 13 129/77 89 BiPAP 60 07/20/17 14:10 77 16 155/77 90 BiPAP 60 07/20/17 14:00 87 12 125/66 88 BiPAP 50 07/20/17 13:50 89 14 137/69 92 BiPAP 50 07/20/17 13:40 92 15 116/89 91 BiPAP 50 07/20/17 13:30 90 15 139/78 95 BiPAP 50 07/20/17 13:20 92 14 140/77 91 BiPAP 50 07/20/17 13:10 94 18 151/79 96 BiPAP 50 07/20/17 13:01 36.0 95 16 166/84 92 BiPAP 50 07/20/17 13:00 96 24 95 BiPAP/CPAP 07/20/17 13:00 96 93 50 Physical Exam General Appearance: WD/WN, no apparent distress, + obese Eyes: normal inspection, EOMI, sclerae normal ENT: hearing grossly normal Neck: trachea midline Respiratory/Chest: no respiratory distress, no accessory muscle use, + crackles (at bases bilat, faint exp wheezes left>right) Cardiovascular: regular rate, rhythm, no edema, no murmur Abdomen: normal bowel sounds, non tender, soft (and obese) Extremities: normal range of motion, non-tender, no calf tenderness Neurologic/Psychiatric: alert, normal mood/affect, oriented x 3 Skin: normal color, warm/dry, no rash Laboratory Results Last 24 Hours Test 07/20/17 14:45 07/20/17 16:16 07/20/17 16:18 07/20/17 17:36 Bedside Glucose 298 mg/dl 283 mg/dl 258 mg/dl White Blood Count 14.40 K/uL Red Blood Count 3.91 M/uL Hemoglobin 11.8 g/dL Hematocrit 36.9 % Mean Corpuscular Volume 94.4 fL Mean Corpuscular Hemoglobin 30.2 pg Mean Corpuscular Hemoglobin Concent 32.0 g/dl Platelet Count 214 K/uL Mean Platelet Volume 9.9 fL Neutrophils (%) (Auto) 92.6 % Lymphocytes (%) (Auto) 2.9 % Monocytes (%) (Auto) 3.8 % Eosinophils (%) (Auto) 0.0 % Basophils (%) (Auto) 0.1 % Neutrophils # (Auto) 13.34 K/uL Lymphocytes # (Auto) 0.42 K/uL Monocytes # (Auto) 0.55 K/uL Eosinophils # (Auto) 0.00 K/uL Basophils # (Auto) 0.01 K/uL RDW Standard Deviation 45.4 fL RDW Coefficient of Variation 13.2 % Immature Granulocyte % (Auto) 0.6 % Immature Granulocyte # (Auto) 0.08 K/uL Sodium Level 139 mmol/L Potassium Level 4.7 mmol/L Chloride Level 102 mmol/L Carbon Dioxide Level 30 mmol/L Anion Gap 7.0 mmol/L Blood Urea Nitrogen 18 mg/dl Creatinine 1.00 mg/dl Est Creatinine Clear Calc Drug Dose 51.8 ml/min Estimated GFR () 67.0 Estimated GFR (Non- 57.8 BUN/Creatinine Ratio 17.8 Random Glucose 265 mg/dl Calcium Level 8.3 mg/dl Magnesium Level 1.8 mg/dl Total Bilirubin 0.3 mg/dl Aspartate Amino Transf (AST/SGOT) 30 U/L Alanine Aminotransferase (ALT/SGPT) 22 U/L Alkaline Phosphatase 109 U/L Total Creatine Kinase 465 U/L Creatine Kinase MB 16.2 ng/ml Creatine Kinase MB Ratio 3.5 Troponin I < 0.015 ng/ml Total Protein 5.9 gm/dl Albumin 2.9 gm/dl Globulin 3.0 gm/dl Albumin/Globulin Ratio 1.0 Test 07/20/17 18:35 07/20/17 20:31 07/20/17 21:32 07/20/17 22:51 Bedside Glucose 270 mg/dl 224 mg/dl 190 mg/dl 191 mg/dl Test 07/20/17 23:33 07/21/17 00:10 07/21/17 00:27 07/21/17 01:32 Bedside Glucose 186 mg/dl 168 mg/dl 157 mg/dl Total Creatine Kinase 337 U/L Creatine Kinase MB 12.2 ng/ml Creatine Kinase MB Ratio 3.6 Troponin I < 0.015 ng/ml Test 07/21/17 02:33 07/21/17 03:49 07/21/17 05:36 07/21/17 06:52 Bedside Glucose 157 mg/dl 159 mg/dl 137 mg/dl 132 mg/dl Test 07/21/17 07:34 07/21/17 07:48 07/21/17 08:33 Bedside Glucose 123 mg/dl 159 mg/dl White Blood Count 14.60 K/uL Red Blood Count 3.23 M/uL Hemoglobin 9.7 g/dL Hematocrit 30.4 % Mean Corpuscular Volume 94.1 fL Mean Corpuscular Hemoglobin 30.0 pg Mean Corpuscular Hemoglobin Concent 31.9 g/dl Platelet Count 201 K/uL Mean Platelet Volume 9.3 fL Neutrophils (%) (Auto) 91.2 % Lymphocytes (%) (Auto) 4.9 % Monocytes (%) (Auto) 3.6 % Eosinophils (%) (Auto) 0.0 % Basophils (%) (Auto) 0.0 % Neutrophils # (Auto) 13.32 K/uL Lymphocytes # (Auto) 0.71 K/uL Monocytes # (Auto) 0.53 K/uL Eosinophils # (Auto) 0.00 K/uL Basophils # (Auto) 0.00 K/uL RDW Standard Deviation 45.8 fL RDW Coefficient of Variation 13.2 % Immature Granulocyte % (Auto) 0.3 % Immature Granulocyte # (Auto) 0.04 K/uL Sodium Level 139 mmol/L Potassium Level 4.6 mmol/L Chloride Level 101 mmol/L Carbon Dioxide Level 31 mmol/L Anion Gap 7.0 mmol/L Blood Urea Nitrogen 26 mg/dl Creatinine 1.00 mg/dl Est Creatinine Clear Calc Drug Dose 46.6 ml/min Estimated GFR () 67.0 Estimated GFR (Non- 57.8 BUN/Creatinine Ratio 25.5 Random Glucose 120 mg/dl Calcium Level 8.8 mg/dl Total Creatine Kinase 290 U/L Creatine Kinase MB 8.1 ng/ml Creatine Kinase MB Ratio 2.8 Troponin I < 0.015 ng/ml Assessment and Plan Pt is a 67 yo female with a h/o HTN, HL, peripheral edema, COPD, Current smoker , DMII, lumbar stenosis, here for multilevel lumbar decompression and fusion. She developed acute pulm edema and acute hypoxemic respiratory failure requiring BiPAP in PACU. Acute hypoxemic respiratory failure secondary to fluid overload/Pulmonary edema requiring BiPAP, Chronic respiratory failure--> CXR showed pulm edema post-op and is now improved this AM. Weaned off BiPAP to 6LNC, on home O2 2LNC presumably for COPD. No previous h/o CHF as per pt and we have no outpt records , pt denies ever having ECHO. Trop neg x 3. Diuresed overnight with IV lasix although I/Os and weight are not reflective of that. -continue telemetry for now but if EF preserved, can transfer to med-surg -checking ECHO for CHF, valvular dysfunction -continue Lasix 40 mg IV twice a day for now and then transition back to po lasix after adequate diuresis -Keep Bob catheter in until discontinued by medicine service. -continue supplemental O2 and wean to home dose of 2LNC -follow PRP for renal function, lytes Hypertension--BPs controlled Continue metoprolol, aspirin and lisinopril. Hyperlipidemia -- Continue atorvastatin. COPD, Current Smoker, Chronic respiratory failure--diagnosed on PFTs as per pt, not on any home inhalers, continues to smoke but now says she is contemplating quitting. Some wheezing today -start Duonebs ATC -will need home albuterol HFA on discharge -consider starting Spiriva on discharge as well but would be nice to see her PFTs--> will defer to PCP -encouraged smoking cessation for overall health especially in setting of recent lumbar surgery to promote healing Status post multilevel lumbar decompression and fusion Treatment per Dr. Gutierres. Diabetes mellitus II controlled at home, not on manager intermediate insulin. Home meds glipizide, Januvia, metformin, last HgbA1C 7.8% in 05/2017. With hyperglycemia here secondary to IV steroids, requiring Insulin gtt Lantus started this AM and will transition off insulin gtt later and add SSI as per Glycemic Consult from Pharmacy -glucose checks Proph-SCDs, TEDs Dispo- to med/surg floor later today of ECHO ok as above PT/OT consults
[2017-07-21] MEDS ORDERED: INSULIN GLARGINE SOLOSTAR 100 UNITS/ML 3 ML PEN SC ONE (11:00)
[2017-07-21] MEDS: INSULIN REGULAR 250 UNITS in SODIUM CHLORIDE 0.9% 250ML 250 ML IV SCH (12:19)
[2017-07-21] MEDS: ALBUT/IPRATROP 3MG/0.5MG NEB 3 ML VIAL INH SCH ×2 (15:40→20:27)
[2017-07-21] MEDS: INSULIN GLARGINE SOLOSTAR 100 UNITS/ML 3 ML PEN SC SCH (17:40)
[2017-07-21] MEDS: ATORVASTATIN 40 MG TAB PO SCH (21:00)
[2017-07-21] MEDS: DOCUSATE SODIUM/SENNA 50/8.6MG TAB PO SCH (21:00)
[2017-07-21] MEDS ORDERED: [UNRECOGNIZED DRUG - REMARK] ONE (22:00)
[2017-07-22] VITALS (11 sets, daily range): BP systolic 103–135; BP diastolic 63–80; PULSE 43–94; TEMP 36.4–37.2; O2SAT 92–97
[2017-07-22] MEDS: INSULIN ASPART 100 UNITS/ML 3 ML PEN SC SCH ×6 (00:06→21:00)
[2017-07-22] MEDS: POLYETHYLENE (MIRALAX) 17 GM PACK PO SCH ×3 (06:00→18:05)
[2017-07-22] MEDS: ALBUT/IPRATROP 3MG/0.5MG NEB 3 ML VIAL INH SCH ×4 (07:03→19:50)
[2017-07-22 07:42] LABS: BUN/CREATININE RATIO 33.3 (10-20); CALCIUM 8.5 mg/dl (8.5-10.1); CREATININE 0.87 mg/dl (0.60-1.20); MAGNESIUM 2.2 mg/dl (1.8-2.4); POTASSIUM 4.7 mmol/L (3.5-5.1)
[2017-07-22 07:45] LABS: COMPLETE YES; HEMATOCRIT 25.8 % (37-47); IG% 0.3 %; LYMPH % 7.7 %; LYMPH ABS # 1.07 K/uL (1.2-3.4); MEAN CELL VOLUME 94.5 fL (80-100); MEAN CORPUSCULAR HEMOGLOBIN 31.5 pg (25-34); MEAN CORPUSCULAR HGB CONC 33.3 g/dl (32-36); MEAN PLATELET VOLUME 9.7 fL (7.4-10.4); MONO % 10.4 %; NEUT % 81.6 %; PLATELET COUNT 176 K/uL (130-400); RED BLOOD COUNT 2.73 M/uL (4.2-5.4); WHITE BLOOD COUNT 13.91 K/uL (4.8-10.8)
[2017-07-22] MEDS: ASPIRIN 81 MG ECTAB PO SCH (07:49)
[2017-07-22] MEDS: FUROSEMIDE INJ 40 MG in SYRINGE 0 ML IV SCH ×2 (07:49→21:11)
[2017-07-22] MEDS: GABAPENTIN 100 MG CAP PO SCH ×3 (07:49→21:12)
[2017-07-22] MEDS: METOPROLOL SUCC 25MG EXT REL TAB PO SCH (07:50)
[2017-07-22] MEDS: INSULIN GLARGINE SOLOSTAR 100 UNITS/ML 3 ML PEN SC SCH ×2 (07:52→21:14)
[2017-07-22] MEDS: LISINOPRIL 20 MG TAB PO SCH ×2 (08:22→21:12)
--- NOTE | 2017-07-22 10:40 | ECHOCARDIOGRAM REPORT ---
*NOTICE TO RECEIVING [employer]PUBL[employer] AGENCY This information is strictly Confidential and protected under [place] law. [place] law prohibits you from making any further disclosure of this information unless further disclosure is expressly permitted by the written consent of the person to whom it pertains or is authorized by law. A general authorization for the release of medical or other information is not sufficient for this purpose. Hospital accepts no responsibility if the information is made available to any other person, INCLUDING THE PATIENT. Interpretation Summary * Name: CELESTINA HYATT Study Date: 07/21/2017 11:22 AM BP: 119/64 mmHg * Patient Location: C.2T\S\S242\S\2 HR: 84 * : 1950 (M/d/yyyy) Gender: Female Height: 59 in * Age: 67 yrs Ethnicity: [place] Weight: 192 lb * Ordering Physician: Devyn Whyte * Referring Physician: Yunior Gutierres D.O. * Performed By: Rafaela Gambino RDCS * * Reason For Study: CHF * BSA: 1.8 m2 * -- Conclusions -- * Technically limited study despite use of Definity ultrasound contrast. * 1. Normal LV size. Borderline LV wall thickness. * 2. Normal LV systolic function. LVEF 55-60%. No regional wall motion abnormalities. * 3. RV not well visualized. Borderline enlargement, normal RV function. * 4. No significant valvular pathology. * 5. Normal estimated CVP. * 6. No prior studies for comparison. Procedure Details * A contrast injection of Definity was performed to improve assessment of LV function. * Contrast was injected into an intravenous site in the left arm. * One vial of Definity ultrasound contrast was diluted in normal saline to a total volume of 10 ml. A total of '3' ml of solution was administered during imaging. * Lot # [id number] of Definity utilized for procedure. * Expiration date AUG 08. * The attending nurse who injected the contrast agent was BRENDEN MERINO RN. Left Ventricle * The left ventricle is grossly normal size. * There is borderline concentric left ventricular hypertrophy. * Ejection Fraction = 55-60%. * No regional wall motion abnormalities noted. Right Ventricle * The right ventricle is not well visualized. * Borderline right ventricular enlargement. * The right ventricular systolic function is normal as assessed by tricuspid annular plane systolic excursion (TAPSE) (normal >1.5 cm). Atria * The left atrial size is normal. * Borderline right atrial enlargement. * No ASD detected; PFO is not assessed. Mitral Valve * The mitral valve is grossly normal. * There is no mitral valve stenosis. * Significant mitral regurgitation is absent. Tricuspid Valve * The tricuspid valve is not well visualized. Aortic Valve * The aortic valve is not well visualized. * No hemodynamically significant valvular aortic stenosis. * There is no significant aortic regurgitation. Pulmonic Valve * The pulmonic valve is not well visualized. Great Vessels * The aortic root and proximal ascending aorta are normal sized. Pericardium/Pleural * There is no pericardial effusion. Great Vessels * Normal inferior vena cava size and collapsability with sniff indicates a normal right atrial pressure of 3 mmHg Left Ventricular Diastolic Function * Grade I diastolic dysfunction, (abnormal relaxation pattern). MMode 2D Measurements and Calculations IVSd 1.1 cm IVSs 1.5 cm LVIDd 4.4 cm LVIDs 3.3 cm LVPWd 1.4 cm LVPWs 2.0 cm IVS/LVPW 0.79 FS 24.5 % EDV(Teich) 88.4 ml ESV(Teich) 45.2 ml EF(Teich) 48.9 % EDV(cubed) 86.0 ml ESV(cubed) 37.0 ml EF(cubed) 57.0 % % IVS thick 34.3 % % LVPW thick 42.3 % LV mass(C)d 212.0 grams LV mass(C)dI 117.0 grams/m\S\2 LV mass(C)s 242.2 grams LV mass(C)sI 133.6 grams/m\S\2 SV(Teich) 43.2 ml SI(Teich) 23.8 ml/m\S\2 SV(cubed) 49.0 ml SI(cubed) 27.1 ml/m\S\2 LA dimension 2.7 cm LVAd ap4 29.2 cm\S\2 LVLd ap4 7.4 cm EDV(MOD-sp4) 95.6 ml EDV(sp4-el) 97.1 ml LVAs ap4 18.6 cm\S\2 LVLs ap4 7.0 cm ESV(MOD-sp4) 40.8 ml ESV(sp4-el) 41.9 ml EF(MOD-sp4) 57.4 % EF(sp4-el) 56.8 % LVAd ap2 30.8 cm\S\2 LVLd ap2 8.0 cm EDV(MOD-sp2) 99.7 ml EDV(sp2-el) 101.5 ml LVAs ap2 19.1 cm\S\2 LVLs ap2 7.1 cm ESV(MOD-sp2) 42.5 ml ESV(sp2-el) 43.7 ml EF(MOD-sp2) 57.4 % EF(sp2-el) 56.9 % LVLd %diff 6.6 % EDV(MOD-bp) 101.4 ml LVLs %diff 1.2 % ESV(MOD-bp) 41.6 ml EF(MOD-bp) 59.0 % SV(MOD-sp4) 54.8 ml SI(MOD-sp4) 30.3 ml/m\S\2 SV(MOD-sp2) 57.2 ml SI(MOD-sp2) 31.6 ml/m\S\2 SV(MOD-bp) 59.8 ml SI(MOD-bp) 33.0 ml/m\S\2 SV(sp4-el) 55.2 ml SI(sp4-el) 30.5 ml/m\S\2 SV(sp2-el) 57.8 ml SI(sp2-el) 31.9 ml/m\S\2 Doppler Measurements and Calculations MV E max remberto 83.4 cm/sec MV A max remberto 130.4 cm/sec MV E/A 0.64 MV dec time 0.21 sec Ao V2 max 167.6 cm/sec Ao max PG 11.2 mmHg Ao max PG (full) 7.9 mmHg Ao V2 mean 110.5 cm/sec Ao mean PG 5.9 mmHg Ao mean PG (full) 4.0 mmHg Ao V2 VTI 28.7 cm LV V1 max PG 3.3 mmHg LV V1 mean PG 1.9 mmHg LV V1 max 90.7 cm/sec LV V1 mean 63.4 cm/sec LV V1 VTI 20.0 cm
[2017-07-22] MEDS: METFORMIN HCL 500 MG TAB PO SCH ×2 (11:56→18:06)
--- NOTE | 2017-07-22 13:55 | Pharmacy Progress Note ---
Glycemic Control Progress Note Date of Service Jul 22, 2017. Scope Glycemic Pharmacist consulted for glycemic control to write orders per [facility] inpatient glycemic control protocol. Objective Accuchecks BSG (last 24hrs): Test 07/21/17 14:46 07/21/17 15:30 07/21/17 16:33 07/21/17 17:35 Bedside Glucose 112 mg/dl (70-90) 115 mg/dl (70-90) 145 mg/dl (70-90) 211 mg/dl (70-90) Test 07/21/17 18:32 07/21/17 19:36 07/21/17 20:33 07/21/17 21:41 Bedside Glucose 214 mg/dl (70-90) 165 mg/dl (70-90) 145 mg/dl (70-90) 144 mg/dl (70-90) Test 07/22/17 00:04 07/22/17 04:48 07/22/17 06:51 07/22/17 07:19 Bedside Glucose 165 mg/dl (70-90) 174 mg/dl (70-90) 157 mg/dl (70-90) Random Glucose 161 mg/dl (70-99) Test 07/22/17 10:44 Bedside Glucose 213 mg/dl (70-90) HbA1c: 7.8% 07/20/17 Recent Pertinent Medications The patient is currently receiving: * Basal insulin: Lantus 25 units SQ BID * Correctional Insulin: Novolog SQ ACHS and at 0000 + 0400 Correction factor: 12mg/dL/unit Goal range: 110 - 140mg/dL * Prandial insulin: Per carb ratio of 1 unit per 5 grams CHO consumed * Oral Agents: None currently Outpatient Anti-Diabetic Meds Glipizide 20mg PO BID Metformin 1700mg BID Sitagliptin 100mg Q AM Assessment & Plan ASSESSMENT: 07/21/17 * Patient presented yesterday for lumbar spinal surgery. * She had been hyperglycemic prior to the procedure, and glycemic control worsened post-procedure. IV insulin drip was initiated to quickly address hyperglycemia in the setting of recent surgery w/ continued use of high dose IV steroids. * Lantus was continued w/ the insulin drip to allow for easier transition off the drip when that time comes. * BSGs are well controlled this AM. Last dose of dexamethasone IV given at ~ 1000. Would expect increased insulin resistance to continue for next 36-48 hours. Would like to continue the insulin infusion at this time given relatively high infusion rates (5-7 units/hour) despite Lantus administration. I suspect she will quickly become hyperglycemic w/ a SQ regimen at this time. May consider transition off the drip closer to bedtime this evening during a period of fasting. Will escalate basal insulin doses as well starting w/ evening meal to assist w/ this transition. 07/22/17 * Patient was successfully transitioned of the insulin drip last evening * Fasting BSG 157 this AM w/ 50 units of Lantus on board and after receiving 3 units of SQ correctional insulin last night too. Plan to continue the same Lantus dose however add a scale for future doses as steroid effects may begin to dissipate soon. * Last dose of Dexamethasone IV was given > 24 hrs ago, would expect improved insulin sensitivity over the next 24 hours * Pre-lunch hyperglycemia noted today following use of CR 5, will adjust the CR to allow for a larger prandial insulin dose PLAN FOR INPATIENT GLYCEMIC CONTROL: * Change Lantus SQ BID to: * 14 units SQ if BSG less than 120 * 25 units SQ if BSG 120 or greater * Novolog SQ ACHS and at 0000 + 0400 * Continue correction factor 12 mg/dl/unit * Change carb ratio to 1 unit per 4 grams CHO consumed * Continue goal range Low 110 mg/dL - High 140 mg/dL * Resume metformin today in a dose of 1000mg PO BID w/ meals * Please note that the plan above was derived based on current level of insulin resistance and hospital stress. These recommendations are appropriate for inpatient admission only. Plan of care upon discharge will need to be reassessed to avoid potential outpatient hypo/hyperglycemia. Thank you.
--- NOTE | 2017-07-22 14:06 | Hospitalist Progress Note ---
Hospitalist Progress Note Date of Service Jul 22, 2017. Subjective Pt evaluation today including: conversation w/ patient, conversation w/ family Voiding: bob catheter in place Feeling much better. Has some cough but is chronic due to her ACEI. Denies SOB, no CP. SHe was OOB and ambulated today with PT in her room. Is izabel po, no N/V. Weaned down to 3LNC currently, diuresing All Other Systems: Reviewed and Negative Objective Vital Signs Date Time Temp Pulse Resp B/P (MAP) Pulse Ox O2 Delivery O2 Flow Rate FiO2 07/22/17 12:25 36.8 78 20 115/72 (86) 97 Nasal Cannula 5.0 07/22/17 12:00 Nasal Cannula 5.0 07/22/17 11:28 93 07/22/17 11:11 71 18 93 Nasal Cannula 5.0 07/22/17 08:00 Nasal Cannula 5.0 07/22/17 07:55 94 07/22/17 07:37 36.7 78 22 123/63 (83) 92 Nasal Cannula 2.0 07/22/17 07:03 44 18 92 Nasal Cannula 5.0 07/22/17 03:28 36.4 71 18 103/66 (78) 95 Nasal Cannula 5.0 07/21/17 23:34 36.9 69 18 120/75 (90) 93 Nasal Cannula 5.0 07/21/17 20:27 72 18 95 Nasal Cannula 5.0 07/21/17 19:39 36.9 81 20 116/70 (85) 93 Nasal Cannula 5.0 07/21/17 16:00 Nasal Cannula 6.0 07/21/17 15:57 90 18 95 Nasal Cannula 5.0 07/21/17 15:38 36.9 84 20 114/61 (78) 93 Nasal Cannula 5.0 Physical Exam General Appearance: WD/WN, no apparent distress, + obese Eyes: normal inspection, sclerae normal ENT: hearing grossly normal Neck: trachea midline Respiratory/Chest: normal breath sounds, no respiratory distress, no accessory muscle use, + crackles (faint at bases bialt) Cardiovascular: regular rate, rhythm, no edema (but has woody changes posterior legs bilat from previous chronic edema), no murmur Abdomen: normal bowel sounds, non tender, soft Extremities: no calf tenderness, + pertinent finding (as above) Neurologic/Psychiatric: alert, normal mood/affect Skin: + pertinent finding (back with dressing in place, ELLIOTT drain with serosang fluid, dressing is soaked with serosang fluid onto pillow case behind her) Laboratory Results Last 24 Hours Test 07/21/17 13:30 07/21/17 14:46 07/21/17 15:30 07/21/17 16:33 Bedside Glucose 156 mg/dl 112 mg/dl 115 mg/dl 145 mg/dl Test 07/21/17 17:35 07/21/17 18:32 07/21/17 19:36 07/21/17 20:33 Bedside Glucose 211 mg/dl 214 mg/dl 165 mg/dl 145 mg/dl Test 07/21/17 21:41 07/22/17 00:04 07/22/17 04:48 07/22/17 06:51 Bedside Glucose 144 mg/dl 165 mg/dl 174 mg/dl White Blood Count 13.91 K/uL Red Blood Count 2.73 M/uL Hemoglobin 8.6 g/dL Hematocrit 25.8 % Mean Corpuscular Volume 94.5 fL Mean Corpuscular Hemoglobin 31.5 pg Mean Corpuscular Hemoglobin Concent 33.3 g/dl Platelet Count 176 K/uL Mean Platelet Volume 9.7 fL Neutrophils (%) (Auto) 81.6 % Lymphocytes (%) (Auto) 7.7 % Monocytes (%) (Auto) 10.4 % Eosinophils (%) (Auto) 0.0 % Basophils (%) (Auto) 0.0 % Neutrophils # (Auto) 11.35 K/uL Lymphocytes # (Auto) 1.07 K/uL Monocytes # (Auto) 1.45 K/uL Eosinophils # (Auto) 0.00 K/uL Basophils # (Auto) 0.00 K/uL RDW Standard Deviation 46.7 fL RDW Coefficient of Variation 13.5 % Immature Granulocyte % (Auto) 0.3 % Immature Granulocyte # (Auto) 0.04 K/uL Nucleated RBC Absolute Count (auto) 0.00 K/uL Nucleated Red Blood Cells % 0.0 % Red Blood Cell Morphology Unremarkable Sodium Level 141 mmol/L Potassium Level 4.7 mmol/L Chloride Level 102 mmol/L Carbon Dioxide Level 36 mmol/L Anion Gap 3.0 mmol/L Blood Urea Nitrogen 29 mg/dl Creatinine 0.87 mg/dl Est Creatinine Clear Calc Drug Dose 60.8 ml/min Estimated GFR () 79.3 Estimated GFR (Non- 68.5 BUN/Creatinine Ratio 33.3 Random Glucose 161 mg/dl Calcium Level 8.5 mg/dl Magnesium Level 2.2 mg/dl Test 07/22/17 07:19 07/22/17 10:44 Bedside Glucose 157 mg/dl 213 mg/dl Assessment and Plan Pt is a 67 yo female with a h/o HTN, HL, peripheral edema, COPD, Current smoker , DMII, lumbar stenosis, here for multilevel lumbar decompression and fusion. She developed acute pulm edema and acute hypoxemic respiratory failure requiring BiPAP in PACU. Acute hypoxemic respiratory failure secondary to fluid overload/Pulmonary edema requiring BiPAP, Chronic respiratory failure--> CXR showed pulm edema post-op and is now greatly improved. Weaned off BiPAP to 3LNC, baseline is home O2 2LNC presumably for COPD. No previous h/o CHF or pulm edema. ECHO here shows LVEF 55-60%. No regional wall motion abnormalities. RV not well visualized. Borderline enlargement, normal RV function.No significant valvular pathology.Normal estimated CVP. Trop neg x 3. Continues to diurese and weaning off O2 with IV lasix No evidence of HF on ECHO. Tele no significant events -can transfer to med-surg -continue Lasix 40 mg IV x 1 more dose this evening and then transition back to po lasix in the AM -can dc Bob catheter in the AM -continue supplemental O2 and hopefully can wean to home dose of 2LNC -follow PRP for renal function, lytes Acute blood loss anemia-Hgb down to 8.6 from 13.2 baseline. Hemodynamically stable, no indication for transfusion -follow CBC Hypertension--BPs controlled Continue metoprolol, aspirin and lisinopril. Hyperlipidemia -- Continue atorvastatin. COPD, Current Smoker, Chronic respiratory failure--diagnosed on PFTs as per pt, not on any home inhalers, continues to smoke but now says she is contemplating quitting. -continue Duonebs ATC -will need home albuterol HFA on discharge -consider starting Spiriva on discharge as well but would be nice to see her PFTs--> will defer to PCP -encouraged smoking cessation for overall health especially in setting of recent lumbar surgery to promote healing Status post multilevel lumbar decompression and fusion Treatment per Dr. Gutierres. Diabetes mellitus II controlled at home, not on manager long term care insulin. Home meds glipizide, Januvia, metformin, last HgbA1C 7.8% in 05/2017. With hyperglycemia here secondary to IV steroids, requiring Insulin gtt which is now turned off. Hyperglycemia persists periodically Lantus 25 bid and SSI as per Glycemic Consult from Pharmacy -glucose checks -restarted metformin Proph-SCDs, TEDs Dispo- to med/surg floor today PT/OT consults
[2017-07-22] MEDS: DOCUSATE SODIUM/SENNA 50/8.6MG TAB PO SCH (21:11)
[2017-07-22] MEDS: ATORVASTATIN 40 MG TAB PO SCH (21:11)
[2017-07-23] MEDS: POLYETHYLENE (MIRALAX) 17 GM PACK PO SCH ×3 (05:49→13:12)
[2017-07-23 06:14] LABS: BASO % 0.1 %; BASO ABS # 0.01 K/uL (0-0.2); EOS % 0.4 %; HEMATOCRIT 24.1 % (37-47); IG% 0.3 %; LYMPH % 18.7 %; LYMPH ABS # 1.82 K/uL (1.2-3.4); MEAN CELL VOLUME 94.5 fL (80-100); MEAN CORPUSCULAR HEMOGLOBIN 31.4 pg (25-34); MEAN CORPUSCULAR HGB CONC 33.2 g/dl (32-36); MEAN PLATELET VOLUME 9.6 fL (7.4-10.4); MONO % 11.8 %; NEUT % 68.7 %; PLATELET COUNT 171 K/uL (130-400); RED BLOOD COUNT 2.55 M/uL (4.2-5.4); WHITE BLOOD COUNT 9.72 K/uL (4.8-10.8)
[2017-07-23 06:23] LABS: BUN/CREATININE RATIO 40.7 (10-20); CALCIUM 7.9 mg/dl (8.5-10.1); CREATININE 0.87 mg/dl (0.60-1.20); MAGNESIUM 2.1 mg/dl (1.8-2.4); POTASSIUM 4.4 mmol/L (3.5-5.1)
[2017-07-23 06:44] LABS: COMPLETE YES
[2017-07-23 07:30] VITALS: O2SAT 94
[2017-07-23 07:31] VITALS: BP 130/88; PULSE 93; TEMP 36.8
[2017-07-23 07:33] VITALS: PULSE 89; O2SAT 94
[2017-07-23] MEDS: ALBUT/IPRATROP 3MG/0.5MG NEB 3 ML VIAL INH SCH ×2 (07:33→11:39)
[2017-07-23 07:49] VITALS: O2SAT 94
[2017-07-23] MEDS: LISINOPRIL 20 MG TAB PO SCH (08:14)
[2017-07-23] MEDS: METOPROLOL SUCC 25MG EXT REL TAB PO SCH (08:14)
[2017-07-23] MEDS: METFORMIN HCL 500 MG TAB PO SCH (08:15)
[2017-07-23] MEDS: ASPIRIN 81 MG ECTAB PO SCH (08:15)
[2017-07-23] MEDS: GABAPENTIN 100 MG CAP PO SCH (08:15)
[2017-07-23] MEDS: INSULIN ASPART 100 UNITS/ML 3 ML PEN SC SCH ×2 (08:19→13:14)
[2017-07-23] MEDS: INSULIN GLARGINE SOLOSTAR 100 UNITS/ML 3 ML PEN SC SCH (08:20)
[2017-07-23] MEDS ORDERED: FUROSEMIDE 40 MG TAB PO SCH (09:00)
--- NOTE | 2017-07-23 10:15 | Clinical Documentation Query ---
CLINICAL DOCUMENTATION QUERY 67-y/o female who has undergone spinal decompression and fusion. In your clinical opinion is this patient being managed for: (X ) Acute preserved EF/diastolic CHF treated with IV Lasix ( ) Not Agree ( ) Other explanation of clinical findings (Please Explain) ( ) Unable to determine (Please Define) ( ) Need to Discuss The medical record reflects the following clinical findings, treatment, and risk factors. Clinical Indicators: Respiratory distress. CXR with pulmonary edema. Echo showing LVEF 55-60%. No regional wall motion abnormalities. RV not well visualized. Borderline enlargement, normal RV function.No significant valvular pathology.Normal estimated CVP. Treatment: Medical consult, IV Lasix, O2 via BiPAP, Telemetry, I/O's, daily weights. Risk Factors: Age, Hypertension, and surgical stress Please clarify and document your clinical opinion in the progress notes and discharge summary. Terms such as "probable", "suspected", "likely", "questionable", "possible", or "still to be ruled out" are acceptable. IF IN AGREEMENT, YOU MUST DOCUMENT ABOVE DIAGNOSTIC STATEMENT IN DAILY PROGRESS NOTES AND DISCHARGE SUMMARY. This document is not part of the patient's record. Thank You, Jason Nassar, ARYA [phone]
[2017-07-23] MEDS ORDERED: RXC5 PO (10:26)
--- NOTE | 2017-07-23 10:27 | Discharge Instructions ---
Discharge Instructions Date of Service Jul 23, 2017. Admission Reason for Admission: Lumbar Spinal Stenosis Discharge Discharge Diagnosis / Problem: lumbar stenosis Discharge Goals Goal(s): Improve function Activity Recommendations Activity Limitations: per Instructions/Follow-up section ACTIVITY RECOMMENDATIONS: SELF CARE INSTRUCTIONS AFTER THORACIC/LUMBAR FUSIONS 1. You may walk to your tolerance. It is good exercise for your legs and back. Expect some back and intermittent leg aches and pains. 2. You may perform "counter-top" level activities (make a sandwich, obed with a project, etc.). 3. No bending or lifting of more than 10 pounds or back twisting of any nature (roll like a log when turning in bed). 4. You may ride in a car for 20-30 minutes at a time. No driving until after your first visit with your doctor. 5. Frequent changes of position and restricting sitting to 30 minutes at a time will help limit the amount of back spasms and stiffness you may experience. 6. You may discontinue the use of ambulatory aids (cane, crutches, etc.) once your strength and confidence allow. 7. You may inspector final assembly electrical the shower and let water strike your incision when you arrive home at least once daily. Do not take a tub bath, sit in a hot tub or go into a swimming pool until after your first recheck in the office. SPECIAL CARE INSTRUCTIONS: VERY IMPORTANT TO READ AND REVIEW A. Your surgical incision has been closed with a cosmetic suture under the skin that will dissolve in about 6 weeks. In 14 days, you can use a pair of clean scissors and cut the suture that is left outside of the skin at the ends of your incision. 1. The small skin tapes can be removed 7 days after surgery if they have not fallen off by that point. 2. You may keep the wound open to air as much as possible to promote healing after post-op day number 5 unless told otherwise by your doctor. 3. If you think the wound looks like it is becoming infected (redness or worsening drainage) and/or you are experiencing fever, chill or worsening back pain and muscle spasms, contact the office so that we may evaluate you as soon as possible. B. Complications are uncommon, but please contact us if you have any signs or symptoms of: 1. wound infection (fever higher than 102.5 degrees F, redness, separation of wound, drainage, or increasing pain from the incision) 2. blood clots in legs (pain, swelling, redness and warmth in legs) 3. urinary tract infection (fever higher than 102.5 degrees F, burning upon urination or increased frequency of urination) 4. nerve problems (inability to walk on your toes or heels, numbness, loss of bowel or bladder control) 5. any other symptoms that concern you C. Please call the office at if you have any concerns or questions about your operation or recovery. D. No smoking! Smoking drastically decreases the chance of a solid fusion. E. Do not take any anti-inflammatory medications (Indocin, Advil, Motrin, Aspirin, Naprosyn, etc.) as these may inhibit the chance of a solid fusion. Tylenol is okay to take for pain. MANAGING PAIN AFTER SPINAL SURGERY 1. Narcotic medication is intended for short-term use and will be provided for surgical pain. Surgical pain usually lasts for a period of 4-6 weeks. Narcotic medication includes Percocet, Vicodin, Darvocet, Tylenol #3 or Lortab. 2. Longer-term pain is more appropriately treated with non-narcotic medication such as Tylenol ES. 3. Muscle spasm is not appropriately treated with narcotics. Muscle relaxers such as Soma, Flexeril or Skelaxin can be used along with Tylenol ES. 4. Remember that we all live with some "aches and pains". This is not unusual or uncommon after an injury or as we get older. a. Back pain is expected and may include muscle spasms for 4 to 6 weeks after surgery. The pain should gradually improve. If the pain worsens for no apparent reason, please contact the office. b. Intermittent leg pain may also be experienced and should not be concerned about unless it worsens for no apparent reason. If so, please contact the office. 5. We will provide appropriate medication within the normal guidelines of their prescribed use. We will also be very cautious and aware of potential abuse and extended duration of patients' medication needs. a. Pain medications are for your comfort and to assist with sleep and rest so that the tissue can heal. They are not provided in order to return to normal activity and should not be used through the day. To do so or worsening pain at night can result from ongoing tissue damage and development of tolerance to the prescribed medicine. 6. Please allow 2-3 days to process refills. Prescriptions will not be mailed but must be picked up at the office. FOLLOW UP VISIT: Keep your scheduled follow-up appointment. Any questions, please call the office at . . Current Hospital Diet Patient's current hospital diet: Diabetes Type 2 Diet Discharge Diet Recommended Diet: Regular Diet Procedures Procedures Performed: #1 lumbar decompression medial facetectomies foraminotomies L2 3 L3 4 L4 5L5- S1. #2 posterior spinal fusion L3 4 L4 5 L5-S1. #3 placementposterior spinal segmental instrumentation L3 4 L4 5 L5-S1. #4 interbodyfusion L5-S1. #5 placement peek cage 12 x 22 mm L5-S1. #6 placement oflocally harvested morcellized autograft in the posterior lateral gutters.#7 placement infuse collagen sponge commode Master graft in the posteriorlateral gutters and ostial amp in the interbody space. Pending Studies Studies pending at discharge: no Laboratory Results Hemoglobin A1c Test 06/06/17 09:30 Range/Units Estimated Average Glucose 177 mg/dl Hemoglobin A1c 7.8 H 4.5-5.6 % Medical Emergencies . Who to Call and When: Medical Emergencies: If at any time you feel your situation is an emergency, please call 911 immediately. . Non-Emergent Contact Non-Emergency issues call your: Primary Care Provider . "Provider Documentation" section prepared by Yunior Gutierres. . VTE Core Measure Inpt VTE Proph given/why not?: Violet Hernandez, PATRIA's
[2017-07-23 10:38] VITALS: BP 130/88; PULSE 89; TEMP 36.8; O2SAT 94
[2017-07-23 11:39] VITALS: PULSE 94; O2SAT 96
--- NOTE | 2017-07-23 13:10 | Progress Note ---
Subjective Date of Service: Jul 23, 2017. Subjective Pt evaluation today including: conversation w/ patient, physical exam, chart review, lab review, review of studies, review of inpatient medication list Resting comfortably in bed No respiratory distress No complaints at this time Review of Systems Constitutional: No fever, No chills, No sweats, No weakness Respiratory: No cough, No sputum, No wheezing, No shortness of breath, No dyspnea on exertion Cardiac: No chest pain, No orthopnea, No PND, No edema Abdomen: No pain, No nausea, No vomiting, No diarrhea, No constipation Musculoskeletal: No joint pain, No muscle pain, No swelling, No calf pain Female : No dysuria, No urinary frequency, No hematuria, No incontinence Neurologic: No memory loss, No paralysis, No weakness, No numbness/tingling Psychiatric: No depression symptoms, No anhedonism, No anxiety, No insomnia Skin: No rash, No itch Objective Vital Signs Date Time Temp Pulse Resp B/P (MAP) Pulse Ox O2 Delivery O2 Flow Rate FiO2 07/23/17 11:39 94 16 96 Nasal Cannula 3.0 07/23/17 10:38 36.8 89 16 94 Room Air 07/23/17 07:49 94 Nasal Cannula 3.0 07/23/17 07:33 89 16 94 Nasal Cannula 3.0 07/23/17 07:31 36.8 93 18 130/88 (102) 07/23/17 07:30 94 Nasal Cannula 3.0 07/23/17 00:20 Nasal Cannula 3.0 07/22/17 22:54 36.8 78 18 120/70 (87) 96 Nasal Cannula 3.0 07/22/17 19:50 94 16 93 Nasal Cannula 4.0 07/22/17 15:51 Nasal Cannula 4.0 07/22/17 15:20 37.2 84 20 135/80 (98) 97 Nasal Cannula 4.0 07/22/17 14:54 36.8 88 18 92 4.0 07/22/17 14:29 88 18 92 Nasal Cannula 4.0 Physical Exam General Appearance: WD/WN, no apparent distress Eyes: normal inspection, PERRL, EOMI, sclerae normal Neck: supple, no adenopathy, thyroid normal, no JVD Respiratory/Chest: chest non-tender, lungs clear, normal breath sounds, no respiratory distress Cardiovascular: no edema, no gallop, no JVD, no murmur Abdomen: normal bowel sounds, non tender, soft, no organomegaly Extremities: normal range of motion, non-tender, normal inspection, no pedal edema Neurologic/Psychiatric: no motor/sensory deficits, alert, normal mood/affect, oriented x 3 Skin: normal color, warm/dry, no rash Lymphatic: no adenopathy Laboratory Results Last 24 Hours Test 07/22/17 17:13 07/22/17 20:21 07/23/17 05:45 07/23/17 07:44 Bedside Glucose 108 mg/dl 101 mg/dl 155 mg/dl White Blood Count 9.72 K/uL Red Blood Count 2.55 M/uL Hemoglobin 8.0 g/dL Hematocrit 24.1 % Mean Corpuscular Volume 94.5 fL Mean Corpuscular Hemoglobin 31.4 pg Mean Corpuscular Hemoglobin Concent 33.2 g/dl Platelet Count 171 K/uL Mean Platelet Volume 9.6 fL Neutrophils (%) (Auto) 68.7 % Lymphocytes (%) (Auto) 18.7 % Monocytes (%) (Auto) 11.8 % Eosinophils (%) (Auto) 0.4 % Basophils (%) (Auto) 0.1 % Neutrophils # (Auto) 6.67 K/uL Lymphocytes # (Auto) 1.82 K/uL Monocytes # (Auto) 1.15 K/uL Eosinophils # (Auto) 0.04 K/uL Basophils # (Auto) 0.01 K/uL RDW Standard Deviation 46.9 fL RDW Coefficient of Variation 13.5 % Immature Granulocyte % (Auto) 0.3 % Immature Granulocyte # (Auto) 0.03 K/uL Red Blood Cell Morphology Unremarkable Sodium Level 142 mmol/L Potassium Level 4.4 mmol/L Chloride Level 101 mmol/L Carbon Dioxide Level 37 mmol/L Anion Gap 4.0 mmol/L Blood Urea Nitrogen 35 mg/dl Creatinine 0.87 mg/dl Est Creatinine Clear Calc Drug Dose 60.8 ml/min Estimated GFR () 79.3 Estimated GFR (Non- 68.5 BUN/Creatinine Ratio 40.7 Random Glucose 94 mg/dl Calcium Level 7.9 mg/dl Magnesium Level 2.1 mg/dl Test 07/23/17 12:22 Bedside Glucose 188 mg/dl Assessment and Plan Pt is a 67 yo female with a h/o HTN, HL, peripheral edema, COPD, Current smoker , DMII, lumbar stenosis, here for multilevel lumbar decompression and fusion. She developed acute pulm edema and acute hypoxemic respiratory failure requiring BiPAP in PACU. Acute hypoxemic respiratory failure secondary to fluid overload/Pulmonary edema requiring BiPAP, Chronic respiratory failure--> CXR showed pulm edema post-op and is now greatly improved. Weaned off BiPAP to 3LNC, baseline is home O2 2LNC presumably for COPD. No previous h/o CHF or pulm edema. ECHO here shows LVEF 55-60%. No regional wall motion abnormalities. RV not well visualized. Borderline enlargement, normal RV function.No significant valvular pathology.Normal estimated CVP. Trop neg x 3. Continues to diurese, now on PO lasix No evidence of HF on ECHO. Tele no significant events -can transfer to med-surg -can dc [place] catheter -continue supplemental O2 and hopefully can wean to home dose of 2LNC -follow PRP for renal function, lytes Acute blood loss anemia-Hgb down to 8.0 from 13.2 baseline. Hemodynamically stable, no indication for transfusion -follow CBC Hypertension--BPs controlled Continue metoprolol, aspirin and lisinopril. Hyperlipidemia -- Continue atorvastatin. COPD, Current Smoker, Chronic respiratory failure--diagnosed on PFTs as per pt, not on any home inhalers, continues to smoke but now says she is contemplating quitting. -continue Duonebs ATC -will need home albuterol HFA on discharge -consider starting Spiriva on discharge as well but would be nice to see her PFTs--> will defer to PCP -encouraged smoking cessation for overall health especially in setting of recent lumbar surgery to promote healing Status post multilevel lumbar decompression and fusion Treatment per Dr. Gutierres. Diabetes mellitus II controlled at home, not on senior living insulin. Home meds glipizide, Januvia, metformin, last HgbA1C 7.8% in 05/2017. With hyperglycemia here secondary to IV steroids, requiring Insulin gtt which is now turned off. Hyperglycemia persists periodically Lantus 25 bid and SSI as per Glycemic Consult from Pharmacy -glucose checks -restarted metformin Proph-SCDs, TEDs Dispo- to med/surg floor today PT/OT consults
--- NOTE | 2017-07-23 13:27 | Discharge Summary ---
Orthopedic Discharge Summary Admission Date/Reason Jul 20, 2017 at 11:58 Lumbar Spinal Stenosis. Discharge Date/Disposition Jul 23, 2017 Home Diagnosis Principal Diagnosis: Spinal stenosis Admission Physical Exam As per Admitting History & Physical. Hospital Course Patient underwent lumbar decompression fusion tolerated this well as taken to the orthopedic floor postoperatively. Postoperative she was up and amatory progressed nicely throughout her stay ELLIOTT drain decreasing appropriately neurogenic pain improving nicely. Substernally she was discharged home. Discharge orders and instructions found on the chart for further review. Discharge Instructions Please refer to the electronic Patient Visit Report (Discharge Instructions) for additional information.
--- NOTE | 2017-07-23 16:26 | Anesthesiology Progress Note ---
Anesthesia Post Op Note Date & Time Jul 23, 2017 at 16:26 Vital Signs Pain Intensity: 2.0 Vital Signs Past 12 Hours Date Time Temp Pulse Resp B/P (MAP) Pulse Ox O2 Delivery O2 Flow Rate FiO2 07/23/17 11:39 94 16 96 Nasal Cannula 3.0 07/23/17 10:38 36.8 89 16 94 Room Air 07/23/17 07:49 94 Nasal Cannula 3.0 07/23/17 07:33 89 16 94 Nasal Cannula 3.0 07/23/17 07:31 36.8 93 18 130/88 (102) 07/23/17 07:30 94 Nasal Cannula 3.0 Notes Mental Status: alert / awake / arousable, participated in evaluation Pt Amnestic to Procedure: Yes Nausea / Vomiting: adequately controlled Pain: adequately controlled Airway Patency, RR, SpO2: stable & adequate BP & HR: stable & adequate Hydration State: stable & adequate Anesthetic Complications: no major complications apparent
== END 2017-07-23 13:56 | disposition home or self-care (01) | DRG 453 ==
LOC: C.ACU 07:24 → C.2T 11:58 → ENRESERV 14:10 → C.3E 07-22 15:17
PROVIDERS: ADMIT Orthopaedic Surgery Orthopaedic Surgery of the Spine; ATTEND Orthopaedic Surgery Orthopaedic Surgery of the Spine
PROC: 0SG1071 Fusion of 2 or more Lumbar Vertebral Joints with Autologous Tissue Substitute, Posterior Approach, Posterior Column, Open Approach (ICD-10-PCS; principal; 2017-07-20 09:15)
PROC: 0SG30AJ Fusion of Lumbosacral Joint with Interbody Fusion Device, Posterior Approach, Anterior Column, Open Approach (ICD-10-PCS; principal; 2017-07-20 09:15)
PROC: 0ST40ZZ Resection of Lumbosacral Disc, Open Approach (ICD-10-PCS; principal; 2017-07-20 09:15)
DX: M48.07 Spinal stenosis, lumbosacral region (principal); J96.21 Acute and chronic respiratory failure with hypoxia; I50.31 Acute diastolic (congestive) heart failure; D62 Acute posthemorrhagic anemia; E11.9 Type 2 diabetes mellitus without complications; I10 Essential (primary) hypertension; E78.5 Hyperlipidemia, unspecified; J44.9 Chronic obstructive pulmonary disease, unspecified; Z79.82 Long term (current) use of aspirin; Z79.84 Long term (current) use of oral hypoglycemic drugs; Z79.899 Other long term (current) drug therapy; F17.200 Nicotine dependence, unspecified, uncomplicated

== ENCOUNTER → 2017-09-06 | Outpatient (CLI) | payer OTHER, BC ==
[~2017-09-06] MED LIST changes: -CEFAZOLIN 2000 MG/60 ML D5W IV SCH; -LACTATED RINGER'S 1000ML 1,000 ML IV SCH; +RXC5 PO
[2017-09-06 18:54] LABS: ALT/SGPT 17 U/L (12-78); AST/SGOT 22 U/L (15-37); BLOOD UREA NITROGEN 15 mg/dl (7-18); CALCIUM 8.8 mg/dl (8.5-10.1); CARBON DIOXIDE 31 mmol/L (21-32); CHLORIDE 101 mmol/L (98-107); CREATININE 0.89 mg/dl (0.60-1.20); GLUCOSE 211 mg/dl (70-99); POTASSIUM 4.6 mmol/L (3.5-5.1); SODIUM 140 mmol/L (136-145)
[2017-09-06 18:57] LABS: ALKALINE PHOSPHATASE 121 U/L (45-117)
[2017-09-07 05:28] LABS: ESTIMATED AVERAGE GLUCOSE 140 mg/dl; HA1C FLAG Normal (Normal)
== END | disposition home or self-care (01) ==
LOC: C.LABSPEC 17:46
PROVIDERS: ATTEND Family Medicine
DX: E11.9 Type 2 diabetes mellitus without complications (principal)